=== PATIENT | female | born 1985 | race Caucasian/White ===

== ENCOUNTER 2016-11-03 13:20 | Emergency (ER) | payer OTHER ==
[~2016-11-03] VITALS: Ht 157.5 cm; Wt 50.8 kg
--- NOTE | 2016-11-03 15:16 | REP ---
Headache after trauma. COMPARISON: None. TECHNIQUE: 4.5 mm contiguous transaxial sections were obtained from the skull base to the cerebral convexities with thin cuts through the posterior fossa without the administration of intravenous contrast. FINDINGS: The ventricles and sulci are consistent with the patient's age. There are no extra-axial fluid collections. There is no mass effect. The deep cerebral white matter is consistent with the patient's age. The orbital and petrous structures , cerebellopontine angles, and posterior fossa are unremarkable. The sella turcica, cavernous, and paracavernous structures are essentially unremarkable. The visualized portions of the paranasal sinuses and mastoid air cells are clear. Images of the skull base show no gross abnormality. IMPRESSION: Essentially unremarkable CT examination of the brain. Signed by James Ambriz DO 11/03/2016 04:30 P
--- NOTE | 2016-11-03 15:30 | REP ---
RIGHT HAND, FOUR VIEWS: There is no evidence of an acute fracture, dislocation or intrinsic bone disease. IMPRESSION: No fracture or dislocation. Signed by Valentin Red MD 11/03/2016 05:26 P
[2016-11-03 15:57] VITALS: BP 137/63
== END 2016-11-03 16:07 | disposition home or self-care (01) ==
LOC: M ED 13:20
DX: S00.91XA Abrasion of unspecified part of head, initial encounter (principal); S60.221A Contusion of right hand, initial encounter; S06.0X0A Concussion without loss of consciousness, initial encounter; V19.9XXA Pedal cyclist (driver) (passenger) injured in unspecified traffic accident, initial encounter; Y92.410 Unspecified street and highway as the place of occurrence of the external cause; Y93.55 Activity, bike riding; Y99.9 Unspecified external cause status

== ENCOUNTER → 2017-05-11 | Outpatient (REF) | payer OTHER | LOC: M LAB REF 09:41 | DX: J02.9 Acute pharyngitis, unspecified (principal) ==

== ENCOUNTER → 2017-07-06 | Outpatient (REF) | payer OTHER | LOC: M LAB REF 18:19 | DX: R30.0 Dysuria (principal) | CPT/HCPCS: 87086 ==

== ENCOUNTER → 2017-07-06 | Outpatient (CLI) | payer OTHER ==
[2017-07-06 19:46] LABS: BASO # 0.1 10^3/uL (0.0-0.2); BASO % 1.7 % (0.0-1.0); EOS % 0.3 % (0.0-3.0); HEMOGLOBIN 11.2 g/dl (12.0-16.0); IMMATURE GRANULOCYTE % 0.3 % (0-3.0); LYMPH % 16.9 % (24.0-44.0); MEAN CORPUSCULAR HEMOGLOBIN 38.8 pg (27.0-33.0); MEAN CORPUSCULAR HGB CONC 33.9 g/dl (32.0-36.5); MONO # 0.6 10^3/uL (0.0-0.8); MONO % 10.5 % (0.0-5.0); NEUTROPHILS # 4.2 10^3/uL (1.8-7.7); NEUTROPHILS % 70.3 % (36.0-66.0); PLATELET COUNT, AUTOMATED 266 10^3/uL (150-450); RED BLOOD COUNT 2.89 10^6/uL (4.00-5.40); RED CELL DISTRIBUTION WIDTH 13.9 % (11.5-14.5)
[2017-07-06 19:56] LABS: ALBUMIN/GLOBULIN RATIO 1.38 (1.00-1.93); ALKALINE PHOSPHATASE 151 U/L (45-117); ALT/SGPT 52 U/L (12-78); ANION GAP 7 MEQ/L (8-16); AST/SGOT 327 U/L (7-37); BILIRUBIN,TOTAL 1.2 MG/DL (0.2-1.0); BLOOD UREA NITROGEN 8 MG/DL (7-18); CALCIUM LEVEL 8.9 MG/DL (8.5-10.1); CARBON DIOXIDE LEVEL 30 MEQ/L (21-32); CHLORIDE LEVEL 100 MEQ/L (98-107); FREE T4 0.63 NG/DL (0.76-1.46); GLOMERULAR FILTRATION RATE > 60.0 (>60); GLUCOSE, FASTING 107 MG/DL (70-100); LIPASE 254 U/L (73-393); POTASSIUM SERUM 4.1 MEQ/L (3.5-5.1); SODIUM LEVEL 137 MEQ/L (136-145); THYROID STIMULATING HORMONE 0.997 uIU/ML (0.358-3.740); TOTAL PROTEIN 6.9 GM/DL (6.4-8.2)
[2017-07-06 20:33] LABS: ADD MORPHOLOGY? YES; MEAN CORPUSCULAR VOLUME 114.2 fl (80.0-96.0); PLATELET ESTIMATE NORMAL (NORMAL); POSITIVE MORPH POS FLAG
== END ==
LOC: M WUC 16:21
DX: R11.2 Nausea with vomiting, unspecified (principal)
CPT/HCPCS: 83690

== ENCOUNTER → 2017-07-16 | Outpatient (REF) | payer OTHER ==
[2017-07-16 17:39] LABS: HCG, SERUM QUALITATIVE NEGATIVE (NEGATIVE)
[2017-07-16 17:40] LABS: CONTROL LINE HCG INT CTR LINE PRESENT
[2017-07-16 17:56] LABS: FOLATE 3.5 NG/ML; VITAMIN B12 LEVEL 558 PG/ML
[2017-07-16 18:06] LABS: FERRITIN 449 NG/ML (8-252); IRON (FE) 131 UG/DL (50-170); TOTAL IRON BINDING CAPACITY 291 UG/DL (250-450)
[2017-07-17 11:15] LABS: HEPATITIS B SURFACE ANTIGEN NEGATIVE (NEGATIVE)
[2017-07-17 11:34] LABS: HEPATITIS C VIRUS ABY INDEX 0.1 INDEX (<0.8)
[2017-07-17 11:34] LABS: HEPATITIS B CORE ANTIBODY IGM NEGATIVE (NEGATIVE)
[2017-07-17 11:48] LABS: HEPATITIS A ANTIBODY IGM NEGATIVE (NEGATIVE)
[2017-07-20 14:11] LABS: VITAMIN D 1,25 DIHYDROXY 41.5 pg/mL (19.9-79.3)
== END ==
LOC: M LAB REF 16:25
DX: D64.9 Anemia, unspecified (principal); R94.5 Abnormal results of liver function studies

== ENCOUNTER 2017-07-28 08:50 | Emergency (ER) | payer OTHER ==
[2017-07-28] MEDS: NS 1,000 ML IV (09:59)
[2017-07-28] MEDS: KETOROLAC 30 MG/ML VIAL (J1885) IV (10:00)
[2017-07-28 10:22] LABS: CONTROL LINE HCG INT CTR LINE PRESENT; HCG, SERUM QUALITATIVE NEGATIVE (NEGATIVE)
[2017-07-28 10:29] LABS: ALBUMIN 4.3 GM/DL (3.2-5.2); ALBUMIN/GLOBULIN RATIO 1.34 (1.00-1.93); ALKALINE PHOSPHATASE 118 U/L (45-117); ALT/SGPT 24 U/L (12-78); ANION GAP 12 MEQ/L (8-16); AST/SGOT 119 U/L (7-37); BASO # 0.1 10^3/uL (0.0-0.2); BASO % 2.2 % (0.0-1.0); BILIRUBIN,DIRECT 0.3 MG/DL (0.0-0.2); BILIRUBIN,TOTAL 0.8 MG/DL (0.2-1.0); BLOOD UREA NITROGEN 8 MG/DL (7-18); CALCIUM LEVEL 8.5 MG/DL (8.5-10.1); CARBON DIOXIDE LEVEL 23 MEQ/L (21-32); CHLORIDE LEVEL 106 MEQ/L (98-107); CREATININE FOR GFR 0.53 MG/DL (0.55-1.30); EOS % 0.9 % (0.0-3.0); GLOMERULAR FILTRATION RATE > 60.0 (>60); GLUCOSE, FASTING 89 MG/DL (70-100); HEMATOCRIT 35.6 % (36.0-47.0); HEMOGLOBIN 12.6 g/dl (12.0-15.5); LIPASE 195 U/L (73-393); LYMPH # 1.6 10^3/uL (1.5-4.5); LYMPH % 33.8 % (24.0-44.0); MEAN CORPUSCULAR HEMOGLOBIN 37.8 pg (27.0-33.0); MEAN CORPUSCULAR HGB CONC 35.4 g/dl (32.0-36.5); MEAN CORPUSCULAR VOLUME 106.9 fl (80.0-96.0); MONO # 0.6 10^3/uL (0.0-0.8); MONO % 12.1 % (0.0-5.0); NEUTROPHILS # 2.4 10^3/uL (1.8-7.7); PLATELET COUNT, AUTOMATED 168 10^3/uL (150-450); POTASSIUM SERUM 3.4 MEQ/L (3.5-5.1); RED BLOOD COUNT 3.33 10^6/uL (4.00-5.40); RED CELL DISTRIBUTION WIDTH 14.5 % (11.5-14.5); SODIUM LEVEL 141 MEQ/L (136-145); TOTAL PROTEIN 7.5 GM/DL (6.4-8.2); WHITE BLOOD COUNT 4.6 10^3/uL (4.0-10.0)
[2017-07-28 10:40] LABS: KETONE, URINE AUTO RFX TRACE mg/dL (NEGATIVE); LEUKOCYTE ESTERASE UR AUTO RFX NEGATIVE (NEGATIVE); MUCUS, URINE RFX SMALL (NEGATIVE); NITRITE, URINE AUTO RFX NEGATIVE (NEGATIVE); RBC, URINE AUTO RFX TNTC /HPF (0-3); SPECIFIC GRAVITY UR AUTO RFX 1.031 (1.002-1.035); SQUAM EPITHELIAL CELL UR AURFX 7 /HPF (0-6); WBC, URINE AUTO RFX TNTC /HPF (0-3)
== END 2017-07-28 11:57 | disposition home or self-care (01) ==
LOC: M ED 08:50
DX: N83.202 Unspecified ovarian cyst, left side (principal)
CPT/HCPCS: J1885

== ENCOUNTER → 2017-08-13 | Outpatient (REF) | payer OTHER | LOC: M LAB REF 17:34 | DX: J02.9 Acute pharyngitis, unspecified (principal) ==

== ENCOUNTER → 2018-04-26 | Outpatient (REF) | payer OTHER ==
[~2018-04-26] MED LIST: KETO10TAB PO; MACR100C43 PO; ZOFR4TAB14 PO
== END ==
LOC: M LAB REF 19:22
PROVIDERS: ATTEND Physician Assistant
DX: J06.9 Acute upper respiratory infection, unspecified (principal)

== ENCOUNTER → 2019-11-02 | Outpatient (CLI) | payer SELFPAY | LOC: M LABSMTC 09:47 | PROVIDERS: ATTEND Pediatrics | DX: Z20.828 Contact with and (suspected) exposure to other viral communicable diseases (principal); Z11.59 Encounter for screening for other viral diseases ==

== ENCOUNTER → 2020-04-11 | Outpatient (REF) | payer OTHER | LOC: M SFHCRHEU 11:39 | PROVIDERS: ATTEND Internal Medicine | DX: Z53.9 Procedure and treatment not carried out, unspecified reason (principal); R76.8 Other specified abnormal immunological findings in serum; M25.50 Pain in unspecified joint ==

== ENCOUNTER → 2020-04-14 | Outpatient (CLI) | payer OTHER ==
--- NOTE | 2020-04-14 10:29 | REP ---
INDICATION: SACROILIAC PAIN, LAB 1ST THEN XR. COMPARISON: None. TECHNIQUE: Four views of the bilateral sacroiliac joints. FINDINGS: Bilateral sacroiliac joints are symmetric and age-appropriate. No overt degenerative changes are appreciated. IMPRESSION: Normal symmetric bilateral sacroiliac joints. <Electronically signed by Escobar Herrera > 04/14/20 102
--- NOTE | 2020-04-14 10:30 | REP ---
INDICATION: SACROILIAC PAIN COMPARISON: None. TECHNIQUE: AP, lateral, bilateral oblique, and coned-down views of the lumbar spine. FINDINGS: Alignment and lordosis maintained. Vertebral bodies are intact. Disc spaces are relatively normal/age-appropriate. No acute fracture/compression injury or subluxation. No obvious spondylolysis or spondylolisthesis. No significant degenerative changes appreciated by radiographic evaluation. IMPRESSION: Normal age-appropriate lumbosacral Spine series. <Electronically signed by Escobar Herrera > 04/14/20 102
[2020-04-14 11:29] LABS: C REACTIVE PROTEIN QUANTITATIV < 0.30 MG/DL (0.00-0.30); RHEUMATOID FACTOR QUANT 38.4 IU/ML (<15.0)
[2020-04-16 11:30] LABS: HEPATITIS C VIRUS ABY INDEX 0.1 INDEX (<0.8)
== END ==
LOC: M LAB 09:38
PROVIDERS: ATTEND Internal Medicine
DX: R76.8 Other specified abnormal immunological findings in serum (principal); M25.50 Pain in unspecified joint; M53.3 Sacrococcygeal disorders, not elsewhere classified

== ENCOUNTER → 2020-05-21 | Outpatient (REF) | payer OTHER ==
[2020-05-21 17:53] LABS: PERCENT SATURATION 25.1 % (13.2-45.0)
== END ==
LOC: M LAB REF 16:24
PROVIDERS: ATTEND Internal Medicine
DX: D64.9 Anemia, unspecified (principal)

== ENCOUNTER → 2020-08-31 | Outpatient (CLI) | payer OTHER ==
[2020-09-01 16:08] LABS: TISSUE TRANSGLUTAMINASE IgA <2 U/mL (0-3); TISSUE TRANSGLUTAMINASE IgG <2 U/mL (0-5)
== END ==
LOC: M PLALAB 07:37
PROVIDERS: ATTEND Internal Medicine Endocrinology, Diabetes & Metabolism
DX: R63.4 Abnormal weight loss (principal)

== ENCOUNTER → 2020-10-08 | Outpatient (CLI) | payer OTHER ==
--- NOTE | 2020-10-08 14:46 | REP ---
INDICATION: SHORTNESS OF BREATH COMPARISON: None. TECHNIQUE: PA and lateral. FINDINGS: The mediastinum and cardiac silhouette are normal. The lung kunz demonstrate chronic interstitial changes without acute consolidation, effusion, or pneumothorax. The skeletal structures are intact and normal. IMPRESSION: No acute cardiopulmonary process. <Electronically signed by Escobar Herrera > 10/08/20 [id number]
[2020-10-08 17:19] LABS: BASO # 0.1 10^3/uL (0.0-0.2); BASO % 1.4 % (0.0-1.0); EOS # 0.3 10^3/uL (0.0-0.5); EOS % 3.5 % (0.0-3.0); HEMATOCRIT 42.7 % (36.0-47.0); HEMOGLOBIN 13.9 g/dl (12.0-15.5); LYMPH # 3.1 10^3/uL (1.5-5.0); LYMPH % 36.9 % (24.0-44.0); MEAN CORPUSCULAR HEMOGLOBIN 31.6 pg (27.0-33.0); MEAN CORPUSCULAR HGB CONC 32.6 g/dl (32.0-36.5); MONO # 0.8 10^3/uL (0.0-0.8); NEUTROPHILS % 48.1 % (36.0-66.0); PLATELET COUNT, AUTOMATED 286 10^3/uL (150-450); WHITE BLOOD COUNT 8.3 10^3/uL (4.0-10.0)
[2020-10-08 17:53] LABS: ERYTHROCYTE SEDIMENTATION RATE 4 mm/hr (0-20)
[2020-10-08 18:03] LABS: ALBUMIN 4.3 GM/DL (3.2-5.2); ALT/SGPT 15 U/L (12-78); BILIRUBIN,TOTAL 0.9 MG/DL (0.2-1.0); BLOOD UREA NITROGEN 9 MG/DL (7-18); CALCIUM LEVEL 9.4 MG/DL (8.5-10.1); CARBON DIOXIDE LEVEL 30 MEQ/L (21-32); CHLORIDE LEVEL 106 MEQ/L (98-107); CREATININE FOR GFR 0.66 MG/DL (0.55-1.30); GLOMERULAR FILTRATION RATE > 60.0 (>60); GLUCOSE, FASTING 80 MG/DL (70-100); IMMUNOGLOBULIN G 805 MG/DL (681-1648); POTASSIUM SERUM 4.1 MEQ/L (3.5-5.1); SODIUM LEVEL 140 MEQ/L (136-145); TOTAL PROTEIN 7.1 GM/DL (6.4-8.2)
[2020-10-09 09:48] LABS: TOTAL 25(OH) VITAMIN D 39.3 NG/ML (30.0-100.0)
[2020-10-09 10:00] LABS: HEPATITIS B SURFACE ANTIGEN NEGATIVE (NEGATIVE)
[2020-10-09 13:08] LABS: ALBUMIN 4.69 GM/DL (3.29-5.55); ALBUMIN % 66.1 % (55.8-66.1); ALPHA-1-GLOBULIN % 4.1 % (2.9-4.9); ALPHA-2-GLOBULINS % 9.3 % (7.1-11.8); BETA-1-GLOBULINS % 5.4 % (4.7-7.2); BETA-2-GLOBULINS % 3.7 % (3.2-6.5); GAMMA GLOBULIN % 11.4 % (11.1-18.8)
[2020-10-09 13:09] LABS: ALPHA-1-GLOBULINS 0.29 GM/DL (0.17-0.41); ALPHA-2-GLOBULINS 0.66 GM/DL (0.42-0.99); BETA-1-GLOBULINS 0.38 GM/DL (0.28-0.60); BETA-2-GLOBULINS 0.26 GM/DL (0.19-0.55); GAMMA GLOBULINS 0.81 GM/DL (0.65-1.58)
[2020-10-11 23:13] LABS: VITAMIN D 1,25 DIHYDROXY 52.5 pg/mL (19.9-79.3)
== END ==
LOC: M PLAIMG 14:00
PROVIDERS: ATTEND Internal Medicine Rheumatology
DX: R06.02 Shortness of breath (principal); R76.8 Other specified abnormal immunological findings in serum; J98.4 Other disorders of lung

== ENCOUNTER → 2020-12-04 | Outpatient (CLI) | payer OTHER ==
--- NOTE | 2020-12-04 09:11 | PFTRPT ---
Height: 62.00 Inches Weight: 89.00 Lbs BSA: 1.35 Diagnosis: R06.02 DATE: 12/04/2020 ORDERING PHYSICIAN: Dr. Prabha Banuelos Pre and post bronchodilator studies have excellent technical quality. Forced vital capacity is normal. FEV1 is in proportion. Obstructive index is therefore normal. Expiratory limit of the flow-volume loop is normal. No significant bronchodilator response is identified. Total lung capacity is normal. Residual volume is generally in proportion. Diffusing capacity is normal. No hemoglobin available for correction. Airway resistance and conductance are normal. IMPRESSION: Normal study. MTDD
== END ==
LOC: M CARPUL 08:42
PROVIDERS: ATTEND Internal Medicine Rheumatology
DX: R06.02 Shortness of breath (principal)

== ENCOUNTER → 2020-12-11 | Outpatient (CLI) | payer OTHER ==
--- NOTE | 2020-12-12 08:43 | REP ---
INDICATION: SACROILIAC PAIN. COMPARISON: Radiographs 04/14/2020. TECHNIQUE: Multiple sequences obtained of the sacroiliac joints in the axial, sagittal and coronal planes. FINDINGS: The visualized osseous structures demonstrate normal bone marrow signal. There is no bone marrow edema or occult fracture. There is no evidence of sacroiliitis. There is no evidence of occult fracture of the sacrum or coccyx. No pelvic mass is seen. Uterine length is approximately 9.1 cm. Endometrial thickness is approximately 7 mm. There is an IUD in the endometrial canal, which appears to be in good position. No ovarian abnormality is seen. No free fluid is seen in the pelvis. IMPRESSION: No significant abnormality of the sacrum or at the bilateral sacroiliac joints. <Electronically signed by Valentin Red > 12/12/20 [id number]
== END ==
LOC: M RAD 17:48
PROVIDERS: ATTEND Internal Medicine Rheumatology
DX: M53.3 Sacrococcygeal disorders, not elsewhere classified (principal); Z97.5 Presence of (intrauterine) contraceptive device

== ENCOUNTER 2021-09-19 12:27 | Emergency (ER) | payer OTHER ==
[~2021-09-19] VITALS: Ht 157.5 cm; Wt 42.1 kg
[2021-09-19] MEDS ORDERED: BUSP15TA47 (12:35)
[2021-09-19] MEDS ORDERED: HYDR-643 (12:35)
[2021-09-19 17:16] LABS: BASO # 0.1 10^3/uL (0.0-0.2); BASO % 0.4 % (0.0-1.0); EOS % 0.1 % (0.0-3.0); HEMOGLOBIN 14.3 g/dl (12.0-15.5); LYMPH % 8.7 % (24.0-44.0); MEAN CORPUSCULAR HEMOGLOBIN 31.4 pg (27.0-33.0); MEAN CORPUSCULAR VOLUME 92.3 fl (80.0-96.0); MONO # 1.2 10^3/uL (0.0-0.8); MONO % 5.1 % (2.0-8.0); NEUTROPHILS # 19.8 10^3/uL (1.5-8.5); NEUTROPHILS % 85.2 % (36.0-66.0); PLATELET COUNT, AUTOMATED 319 10^3/uL (150-450); RED BLOOD COUNT 4.55 10^6/uL (4.00-5.40); WHITE BLOOD COUNT 23.2 10^3/uL (4.0-10.0)
[2021-09-19 17:38] LABS: BLOOD UREA NITROGEN 9 MG/DL (7-18); CALCIUM LEVEL 9.7 MG/DL (8.5-10.1); CARBON DIOXIDE LEVEL 25 MEQ/L (21-32); CHLORIDE LEVEL 107 MEQ/L (98-107); CREATININE FOR GFR 0.58 MG/DL (0.55-1.30); GLOMERULAR FILTRATION RATE > 60.0 (>60); GLUCOSE, FASTING 85 MG/DL (70-100); SODIUM LEVEL 141 MEQ/L (136-145)
[2021-09-19 18:15] LABS: ERYTHROCYTE SEDIMENTATION RATE 35 mm/hr (0-20)
[2021-09-19] MEDS ORDERED: AMOX875T2 PO (18:34)
[2021-09-19] MEDS ORDERED: PRED20TA PO (18:34)
[2021-09-19] MEDS ORDERED: DOXY-342 PO (18:34)
[2021-09-19] MEDS ORDERED: cefTRIAXone SOD 1 GM in D5W MINI-BAG PLUS 50 ML IV ONE (18:35)
[2021-09-19] MEDS ORDERED: KETOROLAC 30 MG/ML 1ML VIAL IV ONE (19:20)
[2021-09-19] MEDS ORDERED: IBUPROFEN 800 MG TAB PO ONE (19:25)
[2021-09-19 19:49] VITALS: BP 133/76
== END 2021-09-19 19:51 | disposition home or self-care (01) ==
LOC: M ED 12:27
DX: J18.9 Pneumonia, unspecified organism (principal); I95.9 Hypotension, unspecified; Z79.899 Other long term (current) drug therapy
CPT/HCPCS: 36415; 71046; 80048; 84702; 85025; 85652; 96365; 99284; J0696

== ENCOUNTER → 2021-10-22 | Outpatient (REF) | payer OTHER ==
[~2021-10-22] MED LIST changes: +AMOX875T2 PO; +BUSP15TA47; +DOXY-342 PO; +HYDR-643; +PRED20TA PO
== END ==
LOC: M LAB REF 12:09
PROVIDERS: ATTEND Internal Medicine
DX: M06.4 Inflammatory polyarthropathy (principal)

== ENCOUNTER → 2021-11-15 | Outpatient (CLI) | payer OTHER ==
[~2021-11-15] MED LIST changes: +ISOVUE-370 76% 100ML VIAL As Ordered ONE
== END ==
LOC: M RAD 08:12
PROVIDERS: ATTEND Internal Medicine
DX: R59.0 Localized enlarged lymph nodes (principal); R06.02 Shortness of breath
CPT/HCPCS: 70491; 71260; Q9967

== ENCOUNTER → 2021-11-25 | Outpatient (CLI) | payer OTHER ==
[~2021-11-25] MED LIST changes: -ISOVUE-370 76% 100ML VIAL As Ordered ONE
== END ==
LOC: M CARPUL 13:10
PROVIDERS: ATTEND Internal Medicine Rheumatology
DX: R76.8 Other specified abnormal immunological findings in serum (principal); M25.50 Pain in unspecified joint; M53.3 Sacrococcygeal disorders, not elsewhere classified; R06.02 Shortness of breath

== ENCOUNTER → 2021-12-03 | Outpatient (CLI) | payer OTHER | LOC: M CARPUL 08:00 | PROVIDERS: ATTEND Internal Medicine Rheumatology | DX: M25.50 Pain in unspecified joint (principal); R76.8 Other specified abnormal immunological findings in serum; M53.3 Sacrococcygeal disorders, not elsewhere classified; R06.02 Shortness of breath ==

== ENCOUNTER → 2022-01-17 | Outpatient (REF) | payer OTHER ==
[2022-01-17 10:33] LABS: BASO # 0.1 10^3/uL (0.0-0.2); BASO % 1.6 % (0.0-1.0); EOS # 0.4 10^3/uL (0.0-0.5); EOS % 5.5 % (0.0-3.0); HEMATOCRIT 40.7 % (36.0-47.0); HEMOGLOBIN 13.6 g/dl (12.0-15.5); LYMPH % 40.1 % (24.0-44.0); MEAN CORPUSCULAR HEMOGLOBIN 31.2 pg (27.0-33.0); MEAN CORPUSCULAR HGB CONC 33.4 g/dl (32.0-36.5); MEAN CORPUSCULAR VOLUME 93.3 fl (80.0-96.0); MONO # 0.7 10^3/uL (0.0-0.8); MONO % 9.1 % (2.0-8.0); NEUTROPHILS # 3.2 10^3/uL (1.5-8.5); NEUTROPHILS % 43.4 % (36.0-66.0); PLATELET COUNT, AUTOMATED 295 10^3/uL (150-450); RED BLOOD COUNT 4.36 10^6/uL (4.00-5.40); WHITE BLOOD COUNT 7.4 10^3/uL (4.0-10.0)
[2022-01-17 10:49] LABS: ALBUMIN 3.8 GM/DL (3.2-5.2); ALT/SGPT 13 U/L (12-78); BILIRUBIN,TOTAL 0.5 MG/DL (0.2-1.0); BLOOD UREA NITROGEN 7 MG/DL (7-18); CALCIUM LEVEL 9.3 MG/DL (8.5-10.1); CARBON DIOXIDE LEVEL 29 MEQ/L (21-32); CHLORIDE LEVEL 109 MEQ/L (98-107); CREATININE FOR GFR 0.64 MG/DL (0.55-1.30); GLOMERULAR FILTRATION RATE > 60.0 (>60); GLUCOSE, FASTING 60 MG/DL (70-100); POTASSIUM SERUM 3.9 MEQ/L (3.5-5.1); SODIUM LEVEL 141 MEQ/L (136-145); TOTAL PROTEIN 6.5 GM/DL (6.4-8.2)
[2022-01-17 11:01] LABS: ERYTHROCYTE SEDIMENTATION RATE 6 mm/hr (0-20)
== END ==
LOC: M SFHCPLAZ 09:50 → M PLALAB 09:50
PROVIDERS: ATTEND Internal Medicine Rheumatology
DX: M25.50 Pain in unspecified joint (principal); R76.8 Other specified abnormal immunological findings in serum; M53.3 Sacrococcygeal disorders, not elsewhere classified; R06.02 Shortness of breath

== ENCOUNTER → 2022-02-06 | Outpatient (CLI) | payer OTHER ==
[~2022-02-06] MED LIST changes: -DOXY-342 PO; +DOXY100C81 PO
== END ==
LOC: M RAD 12:10
PROVIDERS: ATTEND Internal Medicine Rheumatology
DX: R76.8 Other specified abnormal immunological findings in serum (principal); M25.50 Pain in unspecified joint; M53.3 Sacrococcygeal disorders, not elsewhere classified; J47.9 Bronchiectasis, uncomplicated

== ENCOUNTER → 2022-10-18 | Outpatient (CLI) | payer OTHER ==
[~2022-10-18] MED LIST changes: -DOXY100C81 PO; +DOXY100C82 PO
[2022-10-18 09:18] LABS: BASO # 0.1 10^3/uL (0.0-0.2); BASO % 1.4 % (0.0-1.0); EOS # 0.5 10^3/uL (0.0-0.5); EOS % 4.5 % (0.0-3.0); HEMATOCRIT 44.1 % (36.0-47.0); HEMOGLOBIN 14.7 g/dl (12.0-15.5); LYMPH # 3.7 10^3/uL (1.5-5.0); LYMPH % 36.6 % (24.0-44.0); MEAN CORPUSCULAR HEMOGLOBIN 31.3 pg (27.0-33.0); MEAN CORPUSCULAR HGB CONC 33.3 g/dl (32.0-36.5); MEAN CORPUSCULAR VOLUME 93.8 fl (80.0-96.0); MONO # 0.7 10^3/uL (0.0-0.8); MONO % 7.3 % (2.0-8.0); NEUTROPHILS # 5.1 10^3/uL (1.5-8.5); PLATELET COUNT, AUTOMATED 361 10^3/uL (150-450); WHITE BLOOD COUNT 10.1 10^3/uL (4.0-10.0)
[2022-10-18 09:24] LABS: ERYTHROCYTE SEDIMENTATION RATE 12 mm/hr (0-20)
[2022-10-18 09:47] LABS: ALBUMIN 3.9 G/DL (3.2-5.2); ALKALINE PHOSPHATASE 82 U/L (46-116); ALT/SGPT < 9 U/L (7.0-40); AST/SGOT 9 U/L (<34); BILIRUBIN,TOTAL 0.5 MG/DL (0.3-1.2); BLOOD UREA NITROGEN 9 MG/DL (9-23); C REACTIVE PROTEIN QUANTITATIV < 0.40 MG/DL (<1.0); CARBON DIOXIDE LEVEL 31 MMOL/L (20-31); CHLORIDE LEVEL 107 MMOL/L (98-107); CREATININE FOR GFR 0.65 MG/DL (0.55-1.30); GLOMERULAR FILTRATION RATE > 60.0 (>60); GLUCOSE, FASTING 94 MG/DL (60-100); POTASSIUM SERUM 4.2 MMOL/L (3.5-5.1); SODIUM LEVEL 141 MMOL/L (136-145); TOTAL PROTEIN 6.8 G/DL (5.7-8.2)
== END ==
LOC: M LAB 08:22
PROVIDERS: ATTEND Internal Medicine Rheumatology
DX: M25.50 Pain in unspecified joint (principal); R76.8 Other specified abnormal immunological findings in serum; M53.3 Sacrococcygeal disorders, not elsewhere classified; R06.02 Shortness of breath

== ENCOUNTER 2023-01-14 09:33 | Emergency (ER) | payer OTHER ==
[~2023-01-14] VITALS: Ht 157.5 cm; Wt 46.0 kg
[~2023-01-14 09:33] MED LIST changes: +BENZ200C70 PO; +METH-1165 PO
[2023-01-14 09:34] VITALS: O2SAT 98
[2023-01-14] MEDS ORDERED: METH4PACK (10:36)
[2023-01-14] MEDS ORDERED: NAPR-885 (10:36)
[2023-01-14] MEDS ORDERED: LIDOCAINE 5% (LIDODERM) PATCH TD ONE (12:40)
[2023-01-14] MEDS ORDERED: KETOROLAC 30 MG/ML 1ML VIAL IM ONE (12:40)
[2023-01-14] MEDS ORDERED: BACLOFEN 10 MG TAB PO ONE (12:40)
[2023-01-14] MEDS ORDERED: BACL10TA2 PO (13:51)
[2023-01-14] MEDS ORDERED: LIDO5DIS41 TD (13:51)
[2023-01-14 14:03] VITALS: BP 118/72; TEMP 98.7
== END 2023-01-14 14:03 | disposition home or self-care (01) ==
LOC: M ED 09:33
DX: S39.012A Strain of muscle, fascia and tendon of lower back, initial encounter (principal); Y93.44 Activity, trampolining; Y92.9 Unspecified place or not applicable
CPT/HCPCS: 72110; 73502; 96372; 99283; J1885

== ENCOUNTER 2023-07-09 13:55 | Emergency (ER) | payer OTHER ==
[~2023-07-09] VITALS: Ht 157.5 cm; Wt 48.8 kg
[~2023-07-09 13:55] MED LIST changes: +BACL10TA2 PO; +LIDO5DIS41 TD; +METH4PACK; +NAPR-885
[2023-07-09 15:01] LABS: BASO # 0.1 10^3/uL (0.0-0.2); BASO % 1.4 % (0.0-1.0); EOS # 0.3 10^3/uL (0.0-0.5); EOS % 3.4 % (0.0-3.0); HEMATOCRIT 39.4 % (36.0-47.0); HEMOGLOBIN 13.3 g/dl (12.0-15.5); LYMPH # 3.2 10^3/uL (1.5-5.0); LYMPH % 43.8 % (24.0-44.0); MEAN CORPUSCULAR HEMOGLOBIN 31.7 pg (27.0-33.0); MEAN CORPUSCULAR HGB CONC 33.8 g/dl (32.0-36.5); MONO # 0.7 10^3/uL (0.0-0.8); MONO % 9.5 % (2.0-8.0); NEUTROPHILS % 41.8 % (36.0-66.0); PLATELET COUNT, AUTOMATED 299 10^3/uL (150-450); RED BLOOD COUNT 4.19 10^6/uL (4.00-5.40); WHITE BLOOD COUNT 7.3 10^3/uL (4.0-10.0)
[2023-07-09 15:26] LABS: LIPASE 31 U/L (12-53)
[2023-07-09 15:28] LABS: ALKALINE PHOSPHATASE 62 U/L (46-116); ALT/SGPT 10 U/L (7.0-40); AST/SGOT 20 U/L (<34); BILIRUBIN,DIRECT 0.2 MG/DL (<0.4); BILIRUBIN,TOTAL 0.6 MG/DL (0.3-1.2); BLOOD UREA NITROGEN 12 MG/DL (9-23); CALCIUM LEVEL 9.3 MG/DL (8.5-10.1); CARBON DIOXIDE LEVEL 30 MMOL/L (20-31); CHLORIDE LEVEL 107 MMOL/L (98-107); CREATININE FOR GFR 0.62 MG/DL (0.55-1.30); GLOMERULAR FILTRATION RATE > 60.0 (>60); GLUCOSE, FASTING 101 MG/DL (60-100); POTASSIUM SERUM 3.8 MMOL/L (3.5-5.1); SODIUM LEVEL 136 MMOL/L (136-145); TOTAL PROTEIN 6.8 G/DL (5.7-8.2)
[2023-07-09 15:29] LABS: FREE T4 1.07 NG/DL (0.89-1.76)
[2023-07-09 15:30] LABS: THYROID STIMULATING HORMONE 0.736 uIU/ML (0.55-4.78)
[2023-07-09 18:31] VITALS: BP 135/66; TEMP 98.5; O2SAT 99
== END 2023-07-09 18:33 | disposition home or self-care (01) ==
LOC: M ED 15:54
DX: R07.89 Other chest pain (principal); R00.1 Bradycardia, unspecified; I45.10 Unspecified right bundle-branch block; Z79.891 Long term (current) use of opiate analgesic; Z79.899 Other long term (current) drug therapy; Z79.1 Long term (current) use of non-steroidal anti-inflammatories (NSAID)

== ENCOUNTER → 2024-01-24 | Outpatient (CLI) | payer OTHER ==
[2024-01-24 09:12] LABS: BASO # 0.1 10^3/uL (0.0-0.2); BASO % 1.2 % (0.0-1.0); EOS # 0.5 10^3/uL (0.0-0.5); EOS % 5.4 % (0.0-3.0); HEMATOCRIT 42.4 % (36.0-47.0); HEMOGLOBIN 14.3 g/dl (12.0-15.5); LYMPH # 2.8 10^3/uL (1.5-5.0); LYMPH % 30.2 % (24.0-44.0); MEAN CORPUSCULAR HEMOGLOBIN 31.7 pg (27.0-33.0); MEAN CORPUSCULAR HGB CONC 33.7 g/dl (32.0-36.5); MONO # 0.8 10^3/uL (0.0-0.8); MONO % 8.2 % (2.0-8.0); NEUTROPHILS % 54.6 % (36.0-66.0); PLATELET COUNT, AUTOMATED 327 10^3/uL (150-450); RED BLOOD COUNT 4.51 10^6/uL (4.00-5.40); WHITE BLOOD COUNT 9.2 10^3/uL (4.0-10.0)
[2024-01-24 09:17] LABS: ERYTHROCYTE SEDIMENTATION RATE 7 mm/hr (0-20)
[2024-01-24 09:21] LABS: C REACTIVE PROTEIN QUANTITATIV < 0.40 MG/DL (<1.0)
[2024-01-24 09:23] LABS: ALBUMIN 3.9 G/DL (3.2-5.2); ALKALINE PHOSPHATASE 67 U/L (46-116); ALT/SGPT < 9 U/L (7.0-40); AST/SGOT 8 U/L (<34); BILIRUBIN,TOTAL 0.4 MG/DL (0.3-1.2); BLOOD UREA NITROGEN 18 MG/DL (9-23); CALCIUM LEVEL 9.4 MG/DL (8.5-10.1); CARBON DIOXIDE LEVEL 27 MMOL/L (20-31); CHLORIDE LEVEL 109 MMOL/L (98-107); CREATININE FOR GFR 0.63 MG/DL (0.55-1.30); GLOMERULAR FILTRATION RATE > 60.0 (>58); GLUCOSE, FASTING 96 MG/DL (60-100); POTASSIUM SERUM 4.8 MMOL/L (3.5-5.1); SODIUM LEVEL 138 MMOL/L (136-145)
== END ==
LOC: M LAB 08:10
PROVIDERS: ATTEND Internal Medicine Rheumatology
DX: M25.50 Pain in unspecified joint (principal); R76.8 Other specified abnormal immunological findings in serum; M53.3 Sacrococcygeal disorders, not elsewhere classified; R06.02 Shortness of breath

== ENCOUNTER → 2024-02-15 | Outpatient (CLI) | payer OTHER ==
[2024-02-15 18:16] LABS: FOLATE 4.1 NG/ML (>5.4)
== END ==
LOC: M WUC 15:28
PROVIDERS: ATTEND Internal Medicine
DX: D64.9 Anemia, unspecified (principal); M77.31 Calcaneal spur, right foot

== ENCOUNTER → 2024-06-23 | Outpatient (CLI) | payer OTHER ==
[~2024-06-23] MED LIST changes: +DOXY-442 PO; -DOXY100C82 PO
== END ==
LOC: M WUC 08:18
PROVIDERS: ATTEND Physician Assistant Medical
DX: M54.50 Low back pain, unspecified (principal)

== ENCOUNTER → 2024-12-09 | Outpatient (REF) | payer OTHER ==
[~2024-12-09] MED LIST changes: +LIDO1ADH93 TD; -LIDO5DIS41 TD
[2024-12-09 18:35] LABS: IRON (FE) 81.0 UG/DL (50-170); PERCENT SATURATION 27.7 % (13.2-45.0)
[2024-12-09 19:13] LABS: VITAMIN B12 LEVEL 516.0 PG/ML (211-911)
== END ==
LOC: M LAB REF 13:50
PROVIDERS: ATTEND Internal Medicine
DX: D64.9 Anemia, unspecified (principal)

== ENCOUNTER → 2025-03-07 | Outpatient (CLI) | payer OTHER | LOC: M WUC 15:51 | PROVIDERS: ATTEND Physician Assistant | DX: M25.571 Pain in right ankle and joints of right foot (principal) ==